=== PATIENT | male | born 1945 | race Caucasian/White ===

== ENCOUNTER 2017-10-04 15:13 | Emergency (ER) | payer MEDICARE ==
[~2017-10-04] VITALS: Ht 185.4 cm; Wt 106.8 kg
[2017-10-04 15:22] VITALS: TEMP 97.9
[2017-10-04] MEDS ORDERED: ASPIRIN 81M81 MG/TA2 PO (15:42)
[2017-10-04 15:56] VITALS: BP 158/65
[2017-10-04] MEDS ORDERED: ZITHROMAX Z PA250 MG PO (16:17)
[2017-10-04 16:24] VITALS: PULSE 74
== END 2017-10-04 16:26 | disposition home or self-care (01) ==
LOC: COL.ER 15:13
DX: H66.91 Otitis media, unspecified, right ear (principal); I10 Essential (primary) hypertension; J44.9 Chronic obstructive pulmonary disease, unspecified; Z79.82 Long term (current) use of aspirin

== ENCOUNTER 2021-02-08 12:34 | Observation (INO) | payer MEDICARE, OTHER ==
[~2021-02-08] VITALS: Ht 185.4 cm; Wt 104.1 kg
[~2021-02-08 12:34] MED LIST: ASPIRIN 81M81 MG/TA2 PO; ZITHROMAX Z PA250 MG PO
[2021-02-08 13:07] LABS: BASO # 0.1 (0.0-0.2); BASO % 1.1 % (0.0-2.0); EOS # 0.2 (0.0-0.7); EOS % 3.4 % (0-4.0); GRAN # 1.8 (1.4-6.5); GRAN % 40.3 % (42.2-75.2); HEMATOCRIT 40.4 % (42.0-52.0); HEMOGLOBIN 13.6 g/dl (13.5-18.0); LYMPH # 1.6 (1.2-3.4); LYMPH % 37.3 % (20.0-51.0); MEAN CELL VOLUME 92 fl (80.0-100.0); MEAN CORPUSCULAR HEMOGLOBIN 31 pg (27.0-31.0); MEAN CORPUSCULAR HGB CONC 34 g/dl (33.0-37.0); MEAN PLATELET VOLUME 10.9 fl (7.4-10.4); MONO # 0.8 (0.1-0.6); MONO % 17.7 % (1.7-9.3); PLATELET COUNT 166 K/mm3 (130-400); RED BLOOD COUNT 4.41 M/mm3 (4.20-5.60); REDCELL DISTRIBUTION WIDTH-CV 13.2 % (11.5-14.5)
[2021-02-08 13:17] LABS: ALANINE AMINOTRANSFERASE 18 U/L (4-49); ALBUMIN 4.5 gm/dL (3.5-5.0); ALKALINE PHOSPHATASE 88 U/L (50-136); ANION GAP 9 mmol/L (7-16); AST,SGOT 27 U/L (15-37); BILIRUBIN,TOTAL 0.5 mg/dL (0.0-1.0); BLOOD UREA NITROGEN 17 mg/dL (9-20); CALCIUM 9.1 mg/dL (8.4-10.2); CARBON DIOXIDE 28 mmol/L (22-30); CHLORIDE 96 mmol/L (98-107); CREATININE, serum 0.79 (0.66-1.25); GLUCOSE 102 mg/dL (74-106); POTASSIUM 4.5 mmol/L (3.4-5.0); SODIUM 133 mmol/L (137-145)
[2021-02-08 13:28] LABS: TROPONIN-I < 0.012 ng/mL (0.000-0.035)
[2021-02-08] MEDS ORDERED: PROAIR HFA0.09 MG/AC IH (15:24)
[2021-02-08] MEDS ORDERED: 00186-0372-20 IH (15:25)
[2021-02-08] MEDS ORDERED: NASALCROM5.2 MG/ACT NS (15:27)
[2021-02-08] MEDS ORDERED: PRINIVIL10 MG PO (15:28)
[2021-02-08] MEDS ORDERED: ENBREL50 MG/1 ML SQ (15:28)
[2021-02-08] MEDS ORDERED: PRIL40 PO (15:29)
[2021-02-08] MEDS ORDERED: CLARITIN 1010 MG/TAB PO (15:29)
[2021-02-08] MEDS ORDERED: CIALIS20 MG PO (15:30)
[2021-02-08] MEDS ORDERED: SPIRIVA RE2.5 MCG/Ac IH (15:31)
[2021-02-08] MEDS ORDERED: PLAQUENIL 200M200 MG PO (15:31)
[2021-02-08] MEDS ORDERED: SINGULAIR 110 MG/TAB PO (15:32)
[2021-02-08 17:32] VITALS: BP 167/70; PULSE 60; TEMP 97.9
--- NOTE | 2021-02-08 17:35 | NUR ---
Patient up from ER. Alert and oriented x 3. Assessment complete. Patient oriented to room. Dr. Nieves in to see patient. Denies pain or further needs at this time.
--- NOTE | 2021-02-08 18:24 | NUR ---
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
[2021-02-08 19:02] VITALS: BP 156/77; PULSE 63; TEMP 98.3
--- NOTE | 2021-02-08 22:37 | NUR ---
PT SETTING UP IN BED, DENIES SOA, CHEST PAIN OR NAUSEA. ASSESSMENT AND VITALS OBTAINED. PLAN OF CARE DISCUSSED W PT. TRENDING LABS OVERNIGHT. PT V/U. NEEDS MET.
[2021-02-09 00:22] VITALS: BP 158/77; PULSE 66; TEMP 97.4
[2021-02-09 04:00] VITALS: BP 170/68; PULSE 62; TEMP 97.4
--- NOTE | 2021-02-09 04:55 | NUR ---
rested through out night without incident. Denies chest pain or discomfort. Trending troponins. Needs met.
[2021-02-09 05:59] LABS: HEMATOCRIT 39.5 % (42.0-52.0); HEMOGLOBIN 13.2 g/dl (13.5-18.0); MEAN CELL VOLUME 92 fl (80.0-100.0); MEAN CORPUSCULAR HEMOGLOBIN 31 pg (27.0-31.0); MEAN CORPUSCULAR HGB CONC 33 g/dl (33.0-37.0); MEAN PLATELET VOLUME 10.8 fl (7.4-10.4); PLATELET COUNT 151 K/mm3 (130-400); RED BLOOD COUNT 4.29 M/mm3 (4.20-5.60); REDCELL DISTRIBUTION WIDTH-CV 13.4 % (11.5-14.5)
[2021-02-09 06:01] LABS: ANION GAP 10 mmol/L (7-16); BLOOD UREA NITROGEN 15 mg/dL (9-20); CALCIUM 8.9 mg/dL (8.4-10.2); CARBON DIOXIDE 26 mmol/L (22-30); CHLORIDE 97 mmol/L (98-107); CHOLESTEROL 219 mg/dL (120-200); CHOLESTEROL RISK RATIO 3.8; CREATININE, serum 0.73 (0.66-1.25); GLUCOSE 110 mg/dL (74-106); HDL CHOLESTEROL 57 mg/dL; LDL CHOLESTEROL 140 mg/dL; POTASSIUM 4.1 mmol/L (3.4-5.0); SODIUM 132 mmol/L (137-145); TRIGLYCERIDE 111 mg/dL
[2021-02-09 06:12] LABS: TROPONIN-I < 0.012 ng/mL (0.000-0.035)
--- NOTE | 2021-02-09 07:44 | NUR ---
Assessment completed, alert/oriented, vital signs stable, denies any chest pain or discomfort overnight, serial Troponins have been negative, tele has been NSR/ rate 50's at times but denies any symptoms of bradycardia, distal pulses are palpable, lungs CTA/ denies any SOA or resp.difficulty, patient is tolerting PO intake / denies any nausea or vomitting, he is now sitting at edge of bed eating breakfast, denies other needs and hoping for discharge home today, a.m meds given and will continue to monitor, call light in reach
[2021-02-09 08:24] VITALS: BP 147/60; PULSE 65; TEMP 98.1
[2021-02-09] MEDS ORDERED: LIPITOR20 MG PO (10:19)
[2021-02-09] MEDS ORDERED: IMDUR 30MG30 MG/TAB PO (10:22)
[2021-02-09 11:32] VITALS: BP 168/78; PULSE 60; TEMP 97.6
--- NOTE | 2021-02-09 12:33 | NUR ---
Discharge orders discussed with the patient, instructed to follow up with PCP in 1 week, we fax order to scheduling for outpatient stress test this coming week/ I explained the hospital would call him early this next week to schedule a time, IV and tele removed, discussed medicaitons and med changes/ scripts sent to [facility] pharmacy for him, leaving with his , i escorted them out the door
--- NOTE | 2021-02-09 14:57 | NUR ---
Plan to return home IDL. Patient reportsthat his PCP is Dorothy Baldwin at [facility]. [facility] [place]. Patient reports that he has transportation. Patient denies any DME use or need. Patient declines any services at home. POA is reported as Berta Baez at [phone]. She would have a copy of the PPW if needed. Educated on services available to him. NF.
== END 2021-02-09 12:39 | disposition home or self-care (01) ==
LOC: COL.ER 12:34 → MEDICAL 16:21
PROVIDERS: Emergency Medicine; Physician Assistant; ADMIT Student in an Organized Health Care Education/Training Program
DX: R07.89 Other chest pain (principal); I44.7 Left bundle-branch block, unspecified; M25.551 Pain in right hip; G62.9 Polyneuropathy, unspecified; I25.10 Atherosclerotic heart disease of native coronary artery without angina pectoris; K21.9 Gastro-esophageal reflux disease without esophagitis; I10 Essential (primary) hypertension; J44.9 Chronic obstructive pulmonary disease, unspecified; M06.9 Rheumatoid arthritis, unspecified; E78.5 Hyperlipidemia, unspecified; Z88.2 Allergy status to sulfonamides; Z88.1 Allergy status to other antibiotic agents; Z72.89 Other problems related to lifestyle; Z79.899 Other long term (current) drug therapy; Z79.82 Long term (current) use of aspirin; Z88.8 Allergy status to other drugs, medicaments and biological substances; Z87.891 Personal history of nicotine dependence; Z96.641 Presence of right artificial hip joint
CPT/HCPCS: G0378; J1650

== ENCOUNTER → 2022-04-04 | Outpatient (CLI) | payer OTHER ==
[~2022-04-04] MED LIST changes: +00186-0372-20 IH; +CIALIS20 MG PO; +CLARITIN 1010 MG/TAB PO; +ENBREL50 MG/1 ML SQ; +IMDUR 30MG30 MG/TAB PO; +LIPITOR20 MG PO; +NASALCROM5.2 MG/ACT NS; +PLAQUENIL 200M200 MG PO; +PRIL40 PO; +PRINIVIL10 MG PO; +PROAIR HFA0.09 MG/AC IH; +SINGULAIR 110 MG/TAB PO; +SPIRIVA RE2.5 MCG/Ac IH
== END ==
LOC: COL.RAD 11:53
DX: M25.552 Pain in left hip (principal); Z96.642 Presence of left artificial hip joint
CPT/HCPCS: J3301; Q9967

== ENCOUNTER 2023-03-14 07:29 | Inpatient (IN) | payer OTHER, MEDICARE ==
[~2023-03-14] VITALS: Ht 182.9 cm; Wt 114.0 kg
[2023-03-14] VITALS (690 sets, daily range): BP systolic 70–93; BP diastolic 43–64; PULSE 66–98; TEMP 96.9–101.4; O2SAT 52–100
[2023-03-14 07:58] LABS: HEMATOCRIT 40.4 % (42.0-52.0); HEMOGLOBIN 13.4 g/dl (13.5-18.0); MEAN CELL VOLUME 93 fl (80.0-100.0); MEAN CORPUSCULAR HEMOGLOBIN 31 pg (27-31); MEAN CORPUSCULAR HGB CONC 33 g/dl (33.0-37.0); MEAN PLATELET VOLUME 12.9 fl (7.4-10.4); RED BLOOD COUNT 4.34 M/mm3 (4.20-5.60); REDCELL DISTRIBUTION WIDTH-CV 13.8 % (11.5-14.5)
[2023-03-14 08:03] LABS: PLATELET COUNT 47 K/mm3 (130-400)
[2023-03-14 08:07] LABS: ALBUMIN 2.8 gm/dL (3.4-4.8); BILIRUBIN,TOTAL 0.7 mg/dL (0.2-1.2); CALCIUM 8.6 mg/dL (8.4-10.2); CREATININE, serum 2.76 mg/dL (0.72-1.25); POTASSIUM 3.5 mmol/L (3.5-4.5); TOTAL PROTEIN 7.2 gm/dL (6.2-8.1)
[2023-03-14 09:16] LABS: BAND 36 % (0-10); LYMPHOCYTE 36 % (20.0-51.0); NEUTROPHILS 25 % (42.0-75.2); PLATELET ESTIMATE DECREASED (NORMAL)
[2023-03-14] MEDS ORDERED: PLAQUENIL 200M200 MG PO (09:43)
[2023-03-14] MEDS ORDERED: CYMBALTA 60MG60 MG PO (09:45)
[2023-03-14] MEDS ORDERED: BREZTRI AEROS10.7 GM IH (09:46)
[2023-03-14 10:39] LABS: ARTERIAL BLOOD GAS pH 7.41 (7.35-7.45)
[2023-03-14 10:40] LABS: ARTERIAL BLD GAS O2 SATURATION 96.2 % (92-100); ARTERIAL BLD GAS TCO2 CT 12.8; ARTERIAL BLOOD GAS BASE EXCESS -9.5 (-2-2); ARTERIAL BLOOD GAS HCO3 12.2 meq/L (22-26); ARTERIAL BLOOD GAS PCO2 19.6 mmHg (35-45); ARTERIAL BLOOD GAS PO2 87.5 mmHg (80-100)
--- NOTE | 2023-03-14 11:07 | NUR ---
Vancomycin Initial Dosing Pharmacy Note Ordering provider: Ceci Hayden MD Indication/duration: Sepsis, 7 days LABS: SCr 2.76, CrCl~27, GFR 23 Recommendation: Will start Vancomycin 1 gm IV q24h. Pharmacy will continue to closely monitor and adjust according to patient's renal function. Maintenance dose: 1 gram every 24 hours Trough goal: 15-20 ug/mL
[2023-03-14 11:30] LABS: TSH w REFLEX 1.723 uIU/mL (0.350-4.940)
[2023-03-14 11:31] LABS: TROPONIN-I 0.524 ng/mL (0.00-0.033)
--- NOTE | 2023-03-14 11:42 | NUR ---
DR. ARIZA BEDSIDE FOR CENTRAL LINE PLACEMENT. THIS NURSE ASSISTING.
[2023-03-14 13:02] LABS: GRANULAR CAST >12 /lpf (0); MUCOUS Present (NOT PRESENT); SQUAMOUS EPITHELIAL 0-2 /hpf (0-10); URINE BACTERIA None Seen /hpf (NONE SEEN); URINE RBC 20-50 /hpf (0-2)
[2023-03-14 13:05] LABS: COLLECTION METHOD RANDOM VOIDED; URINE APPEARANCE Cloudy (CLEAR/HAZY); URINE COLOR Amber (YELLOW)
[2023-03-14 13:06] LABS: URINE BLOOD 1+ (NEGATIVE); URINE GLUCOSE Negative (NEGATIVE); URINE KETONE Negative (NEGATIVE); URINE NITRATE Negative (NEGATIVE); URINE PROTEIN(semi-quant) 2+ (NEGATIVE); URINE UROBILINOGEN 0.2 E.U/dL (0.2-1.0)
--- NOTE | 2023-03-14 15:39 | NUR ---
PER FAMILY PMH: BASAL CELL SKIN CA W/ REMOVAL, WITHIN 60-90 DAYS. 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
--- NOTE | 2023-03-14 17:06 | NUR ---
WOUNDS BY BARN CAT BITE ON RIGHT OUT SIDE OF LOWER LEG.
--- NOTE | 2023-03-14 18:13 | NUR ---
PT FAMILY STATES THAT HE IS SAYING HE HAS BACK PAIN.
--- NOTE | 2023-03-14 19:12 | NUR ---
CALLED DOROTHY MONSON IN REGARDS TO PATIENT BLOOD PRESSURE BEING LOW. ORDERS RECEIVED.
--- NOTE | 2023-03-14 19:45 | NUR ---
RECEIVED BEDSIDE SHIFT REPORT FROM ABBI BLANCO. PATIENT HAS INTERNITTENT HYPOTENSION AND IS COMPLAINING OF CHRONIC BACK PAIN. PATIENT HAS NOT VOIDED TODAY BUT WILL REPEAT BLADDER SCAN. HAS ZOSYN, LR AND AMIO RUNNING IN RIGHT INTERNAL JUGULAR TRIPLE LUMEN CATHETER. STILL HAS 2 PERIPHERAL SITES. PATIENT IS LYING IN BED, SUPINE WITH EYES OPEN. FAMILY IS PRESENT AT BEDSIDE. HAS HAD DIARRHEA TODAY. OXYGEN AT 2L NASAL CANNULA. CALL BUTTON WITHIN REACH. OTHER VITAL SIGNS STABLE.
--- NOTE | 2023-03-14 21:07 | NUR ---
CALLED DOROTHY MONSON TO GIVE UPDATE. BLOOD PRESSURE IS STABLE.
[2023-03-15] VITALS (1118 sets, daily range): BP systolic 110–146; BP diastolic 61–80; PULSE 57–81; TEMP 95.9–98; O2SAT 63–100
[2023-03-15 01:25] LABS: COLLECTION METHOD CATHETER
[2023-03-15 01:34] LABS: AMORPHOUS CRYSTAL Present (NOT PRESENT); MUCOUS Present (NOT PRESENT); SQUAMOUS EPITHELIAL 0-2 /hpf (0-10); URINE APPEARANCE Cloudy (CLEAR/HAZY); URINE BACTERIA None Seen /hpf (NONE SEEN); URINE BLOOD Negative (NEGATIVE); URINE COLOR Amber (YELLOW); URINE GLUCOSE Negative (NEGATIVE); URINE KETONE 1+ (NEGATIVE); URINE NITRATE Negative (NEGATIVE); URINE PROTEIN(semi-quant) 2+ (NEGATIVE)
[2023-03-15 06:10] LABS: CALCIUM 7.7 mg/dL (8.4-10.2); CREATININE, serum 2.59 mg/dL (0.72-1.25); POTASSIUM 3.4 mmol/L (3.5-4.5)
[2023-03-15 09:02] LABS: MEAN CELL VOLUME 90 fl (80.0-100.0); MEAN CORPUSCULAR HGB CONC 35 g/dl (33.0-37.0); RED BLOOD COUNT 3.62 M/mm3 (4.20-5.60); REDCELL DISTRIBUTION WIDTH-CV 14.4 % (11.5-14.5)
[2023-03-15 09:04] LABS: HEMATOCRIT 32.6 % (42.0-52.0); HEMOGLOBIN 11.3 g/dl (13.5-18.0); MEAN CORPUSCULAR HEMOGLOBIN 31 pg (27-31); PLATELET COUNT 28 K/mm3 (130-400)
[2023-03-15 09:24] LABS: BAND 7 % (0-10); LYMPHOCYTE 31 % (20.0-51.0); NEUTROPHILS 22 % (42.0-75.2); NUCLEATED RED BLOOD CELL 1 (0-6)
[2023-03-15 09:25] LABS: BURR CELLS 2+; PLATELET ESTIMATE DECREASED (NORMAL)
[2023-03-15 10:20] LABS: INR 1.5 (0.8-3.0); PROTHROMBIN TIME 17.4 SECONDS (9.7-12.8)
--- NOTE | 2023-03-15 10:26 | NUR ---
AMIO TURNED OFF
--- NOTE | 2023-03-15 11:47 | NUR ---
Shop Service Technician rounds: Patient had visitors who appeared to be family. No Shop Service Technician visit offered or completed.
--- NOTE | 2023-03-15 15:24 | NUR ---
Seat Cover Maker met with patient, Partner of 22 years, Berta Baez ([phone]) and adult daughter Pretty Swift ([phone]). Patient is alert and oriented, and has a slight slurred speech; he gives verbal consent to talk to this Seat Cover Maker with visitors present. Patient states he [place] partner [place] [facility] There are two steps to both entryways, and one entryway has railing. Patient has access to a cane, crutches, and a walker as needed, from a previous surgery. He reports independence in his ADLs, and his partner assists with IADLs. Patient has a toilet riser and his family is working to get him an ADA toilet and grab bars installed so his home is more accessible to him. Patient reports he wants to do rehab and return to part-time work with [email or web address], "I like work." Patient is open to recommended rehab options, and saw PT today. Patient sees Danna Colin for Primary Care at the [facility]; he is on the Red team. He does not know if he has a case briefer through the Red Team. He also utilizes local [facility] to see Dr. Calloway for Dermatology. Patient [facility] for [facility] medications, but will utilize [facility] for any urgent medications. He does have a DPOA-HC completed at home that designates his adult son Felix Swift ([phone]). His partner does not wish to make his medical decisions on his behalf. Daughter Pretty plans to bring the DPOA-HC paperwork to the hospital to be filed into patient medical record. Patient and family report no further needs at this time. *Discharge plan pending PT/OT and medical evaluations*
--- NOTE | 2023-03-15 19:39 | NUR ---
RECEIVED REPORT FROM ANDRE SCHULTZ RN. ORDERS, LABS, AND MEDICATIONS REVIEWED AND ACKNOWLEDGED.
--- NOTE | 2023-03-15 21:11 | NUR ---
ASSESSMENT COMPLETED. MEDICATIONS ADMINISTERED PER EMAR. PATIENT'S OXYGEN SAT 98% ON 1L VIA NC. OXYGEN REMOVED AT THIS TIME TO SEE IF PATIENT CAN MAINTAIN WITHOUT. PATIENT REPORTS RIGHT LEG IS TENDER, BUT NO OTHER CONCERNS AT THIS TIME. PATIENT'S OXYGEN LEVEL 96% UPON THIS NURSE LEAVING THE ROOM. WILL CONTINUE TO MONITOR PATIENT'S O2 SATURATION AND RIGHT LOWER LEG. PATIENT SITTING IN RECLINER, CALL LIGHT WITHIN REACH.
[2023-03-15 22:58] LABS: CALCIUM 7.8 mg/dL (8.4-10.2); CREATININE, serum 1.42 mg/dL (0.72-1.25); MAGNESIUM 1.3 mg/dL (1.6-2.6); POTASSIUM 3.1 mmol/L (3.5-4.5)
[2023-03-16] VITALS (751 sets, daily range): BP systolic 108–117; BP diastolic 42–69; PULSE 49–82; TEMP 97.5–98.8; O2SAT 56–100
[2023-03-16 05:13] LABS: HEMOGLOBIN 10.9 g/dl (13.5-18.0); MEAN CELL VOLUME 90 fl (80.0-100.0); MEAN CORPUSCULAR HEMOGLOBIN 31 pg (27-31); MEAN CORPUSCULAR HGB CONC 34 g/dl (33.0-37.0); MEAN PLATELET VOLUME 14.7 fl (7.4-10.4); RED BLOOD COUNT 3.52 M/mm3 (4.20-5.60); REDCELL DISTRIBUTION WIDTH-CV 14.3 % (11.5-14.5)
[2023-03-16 05:15] LABS: HEMATOCRIT 31.8 % (42.0-52.0)
[2023-03-16 05:18] LABS: PLATELET COUNT 38 K/mm3 (130-400)
[2023-03-16 05:23] LABS: CREATININE, serum 1.26 mg/dL (0.72-1.25); POTASSIUM 3.4 mmol/L (3.5-4.5)
[2023-03-16 05:52] LABS: BAND 26 % (0-10); EOSINOPHIL 1 % (0-4); LYMPHOCYTE 30 % (20.0-51.0); NEUTROPHILS 33 % (42.0-75.2)
[2023-03-16 05:53] LABS: PLATELET ESTIMATE DECREASED (NORMAL)
[2023-03-16 08:30] LABS: PATHOLOGY DIFF REVIEW OK
--- NOTE | 2023-03-16 08:54 | NUR ---
BEDSIDE REPORT RECEIVED FROM ABBI ORTEGA. PT SITTING IN BEDSIDE RECLINER. VSS, PT IN AFIB W/ CONTROLLED RATE. FLUIDS AND POTASSIUM INFUSING ORDERED TO RIJ CENTRAL LINE. PT DENIES NEEDS AT THIS TIME, CALL LIGHT IN REACH.
--- NOTE | 2023-03-16 11:54 | NUR ---
Patients willis Washington presents to unit with patients DPOA-HC and Living Will listing both he and the patients daughter Roma as his agents. Copy stickered and placed on the patients chart. Patient verbalizes that he is feeling better today. States that he is normally active and independent and works service parts coordinator for [employer]. States that his employer knows he is here. Patient verbalizes anxiousness about getting out of the hospital.
--- NOTE | 2023-03-16 15:43 | NUR ---
Telehealth visit conducted with Dr. Neel Salcedo, Infectious Disease. Patient consented to visit. Patient's nurse present. Telecommunication initiated without any difficulties during exam. All questions were answered by Dr. Salcedo
--- NOTE | 2023-03-16 16:20 | NUR ---
PT TAKEN TO ROOM 323 VIA AT 1510. REPORT GIVEN TO ABBI HOLLAND. PT IN STABLE CONDITION UPON TRANFER. PT BELONGINGS TAKEN TO NEW ROOM WELL.
[2023-03-17 04:12] VITALS: BP 129/53; PULSE 51; TEMP 98.4
[2023-03-17 06:40] LABS: HEMOGLOBIN 10.3 g/dl (13.5-18.0); MEAN CELL VOLUME 90 fl (80.0-100.0); MEAN CORPUSCULAR HEMOGLOBIN 31 pg (27-31); MEAN CORPUSCULAR HGB CONC 35 g/dl (33.0-37.0); MEAN PLATELET VOLUME 14.4 fl (7.4-10.4); RED BLOOD COUNT 3.29 M/mm3 (4.20-5.60); REDCELL DISTRIBUTION WIDTH-CV 14.6 % (11.5-14.5)
[2023-03-17 06:54] LABS: CALCIUM 8.1 mg/dL (8.4-10.2); CREATININE, serum 0.89 mg/dL (0.72-1.25); POTASSIUM 3.6 mmol/L (3.5-4.5)
[2023-03-17 07:13] VITALS: BP 144/51; PULSE 71; TEMP 97.3
[2023-03-17 07:33] LABS: HEMATOCRIT 29.6 % (42.0-52.0)
[2023-03-17 07:34] LABS: PLATELET COUNT 47 K/mm3 (130-400)
--- NOTE | 2023-03-17 08:30 | NUR ---
pt sitting in chair w breakfast. meds given and assessment complete. vss and tele in place. baum to dd w orange urine output. potassium replaced. reverse precautions in place. RIJ flushes well w good blood return. no needs at this time. call light in reach.
[2023-03-17 08:37] LABS: BAND 4 % (0-10); EOSINOPHIL 1 % (0-4); LYMPHOCYTE 18 % (20.0-51.0); NEUTROPHILS 72 % (42.0-75.2)
[2023-03-17 08:38] LABS: PLATELET ESTIMATE DECREASED (NORMAL)
--- NOTE | 2023-03-17 11:06 | NUR ---
pt daughter, Roma, expressed concerns about discharge and wanting to be involved with conversation before pt is released.
[2023-03-17 11:26] VITALS: BP 139/51; PULSE 56; TEMP 98.5
[2023-03-17 15:11] VITALS: BP 139/52; PULSE 57; TEMP 98.8
--- NOTE | 2023-03-17 15:20 | NUR ---
Telehealth visit conducted with Dr. Neel Salcedo, Infectious Disease. Patient consented to visit. Patient's daughter present during visit. Telecommunication initiated without any difficulties during exam. All questions were answered by Dr. Salcedo
--- NOTE | 2023-03-17 15:39 | NUR ---
Stamp Machine Servicer met with Patient and daughter at bedside to discuss discharge planning. Patient reports that he wants to discharge with outpatient PT through Medicare rather than VA insurance. SW provided Patient with a list of outpatient PT roviders in [place], [place].
[2023-03-17 19:05] VITALS: BP 151/52; PULSE 51; TEMP 97.7
--- NOTE | 2023-03-17 23:29 | NUR ---
GURVINDER, NURSE'S AIDE NOTIFIED ME THAT THE PT. WAS C/O PAIN, AND ASKED IF HE COULD HAVE A DOSE OF TYLENOL, PT. TAKES PILLS ONE AT A TIME, AND DID COUGH AFTER SWALLOWING THE FIRST ONE, WILL CONTINUE TO MONITOR FOR POSSIBLE ASPIRATIONS SIGNS, AND INFORMED PT. THAT I WOULD CHECK ON HIM IN ABOUT AN HOUR TO SEE IF THE TYLENOL HAD HELPED WITH HIS PAIN.
[2023-03-18] VITALS (9 sets, daily range): BP systolic 133–177; BP diastolic 46–70; PULSE 45–128; TEMP 96–99.2
[2023-03-18 06:44] LABS: HEMOGLOBIN 10.4 g/dl (13.5-18.0); MEAN CELL VOLUME 92 fl (80.0-100.0); MEAN CORPUSCULAR HEMOGLOBIN 31 pg (27-31); MEAN CORPUSCULAR HGB CONC 34 g/dl (33.0-37.0); PLATELET COUNT 64 K/mm3 (130-400); RED BLOOD COUNT 3.38 M/mm3 (4.20-5.60); REDCELL DISTRIBUTION WIDTH-CV 15.1 % (11.5-14.5)
[2023-03-18 07:00] LABS: CREATININE, serum 0.8 mg/dL (0.72-1.25); MAGNESIUM 1.5 mg/dL (1.6-2.6); POTASSIUM 3.7 mmol/L (3.5-4.5)
[2023-03-18 07:11] LABS: BAND 10 % (0-10); BASOPHIL 2 % (0-2); EOSINOPHIL 4 % (0-4); LYMPHOCYTE 21 % (20.0-51.0); NEUTROPHILS 55 % (42.0-75.2)
[2023-03-18 07:12] LABS: PLATELET ESTIMATE DECREASED (NORMAL)
--- NOTE | 2023-03-18 07:38 | NUR ---
pt awake resting in bed. dr lopez in this morning for dressing change. antibiotic aquacell applied w aleja bandage. vss and tele in place. potassium replaced this morning. baum to dd w orange urine output. pt denies pn. RIJ flushes well w good blood return. +2 edema to ble. pt denies needs. call light in reach.
--- NOTE | 2023-03-18 09:11 | NUR ---
baum discontinued per dr orders without difficulty.
--- NOTE | 2023-03-18 12:15 | NUR ---
reported pts elevated bp to joanna DE LA CRUZ.
--- NOTE | 2023-03-18 19:07 | NUR ---
PLACED PATIENT ON 2L VIA NASAL CANNULA. SPO2 WAS BELOW 90% BEFORE SVN.
--- NOTE | 2023-03-18 19:57 | NUR ---
Patient A/O, head to toe assessment done, see shift assessment, denies pain at this time, with RIJ CDI, dressing to right leg CDI elevated with pillow, on 2LPM via nasal prong, denies further needs, call light and personal items within reach, will continue to monitor.
[2023-03-19 03:45] VITALS: BP 141/48; PULSE 44; TEMP 97.5
--- NOTE | 2023-03-19 04:26 | NUR ---
Repositioned patient to the right side.
--- NOTE | 2023-03-19 04:40 | NUR ---
Called Lynn and made her aware that patient has been diaphoretic, took blood sugar and it was normal, bradycardic in the 40's, took rectal temperature and it was normal as well, fan provided, will continue to monitor.
[2023-03-19 04:56] VITALS: TEMP 98.2
[2023-03-19 07:07] LABS: BASO # 0.1 K/mm3 (0.0-0.2); BASO % 0.8 % (0.0-2.0); EOS # 0.1 K/mm3 (0.0-0.7); EOS % 1.7 % (0.0-4.0); GRAN # 4.4 K/mm3 (1.4-6.5); GRAN % 74.7 % (42.2-75.2); HEMOGLOBIN 10.3 g/dl (13.5-18.0); LYMPH # 0.8 K/mm3 (1.2-3.4); LYMPH % 13.7 % (20.0-51.0); MEAN CELL VOLUME 93 fl (80.0-100.0); MEAN CORPUSCULAR HEMOGLOBIN 31 pg (27-31); MEAN CORPUSCULAR HGB CONC 33 g/dl (33.0-37.0); MEAN PLATELET VOLUME 14.1 fl (7.4-10.4); MONO # 0.5 K/mm3 (0.1-0.6); MONO % 8.6 % (1.7-9.3); PLATELET COUNT 73 K/mm3 (130-400); RED BLOOD COUNT 3.38 M/mm3 (4.20-5.60)
[2023-03-19 07:10] LABS: HEMATOCRIT 31.3 % (42.0-52.0)
[2023-03-19 07:19] LABS: CALCIUM 7.8 mg/dL (8.4-10.2); CREATININE, serum 0.75 mg/dL (0.72-1.25); POTASSIUM 3.6 mmol/L (3.5-4.5)
[2023-03-19 07:45] VITALS: BP 151/60; PULSE 45; TEMP 97.5
--- NOTE | 2023-03-19 08:29 | NUR ---
PT UNABLE TO AMBULATET AT THIS TIME DUE TO NATURE OF ILLNESS/INJURY. PT WAS ASSESSED IN BED WITH O2 OFF. PT SPO2 REMAINED IN THE LOW 90'S FOR OVER TEN MINUTES WITHOUT O2 ON. NO HOME O2 REQUIRED AT THIS TIME
--- NOTE | 2023-03-19 08:34 | NUR ---
Slotter Operator Helper met with Patient and daughter to discuss discharge planning. Patient reports that reccomends home health and is accepting to this option. SW provided Patient with Medicare.gov list of home health providers servicing [place], [place]. Patient agreed to review the list and make a selection this AM.
--- NOTE | 2023-03-19 08:55 | NUR ---
assisted pt to BSC, pt had small loose bowel movement. pt denies shortness of breath after returning to bed. pt requesting to sit on side of bed to eat breakfast. meds given and assessment complete. RIJ in place. vss and tele in place, pt remains ricky. pt on room air. LLE wound left open to air, abx oitment applied. potassium replaced per protocol. fall precautions in place. pt denies needs at this time. call light in reach.
[2023-03-19 11:22] VITALS: BP 156/75; PULSE 42; PULSE 45; TEMP 97.7
--- NOTE | 2023-03-19 11:36 | NUR ---
Enterostomal Nurse met with PAtient and daughter to discuss Home Health options from provided Medicare.gov list of providing agencies. [facility] their [facility] preference. SW faxed referral documents to [facility].
[2023-03-19] MEDS ORDERED: TOPROL XL 25MG25 MG PO (11:39)
--- NOTE | 2023-03-19 12:37 | NUR ---
[facility] was contacted by [facility] who reports to decline Patient due to their services focusing on palliative care. SW faxed Patient's 2nd preference[facility].
[2023-03-19] MEDS ORDERED: AMOXICILLIN 8751 TAB PO (13:02)
--- NOTE | 2023-03-19 15:00 | NUR ---
Heating Technician collaborated with ABBI Cullen to coordinate with [facility] to ensure agency can meet the needs of Patient. Yenny at [facility] accepts Patient with an intake appointment scheduled for 01-20-23 at 1100. Patient and daughter was notified.
--- NOTE | 2023-03-19 15:05 | NUR ---
Telehealth visit conducted with Dr. Neel Salcedo, Infectious Disease. Patient consented to visit. Patient's daughter present. Telecommunication initiated without any difficulties during exam. All questions were answered by Dr. Salcedo
--- NOTE | 2023-03-19 16:24 | NUR ---
new dressing applied to LLE. RIJ taken out. discharge instructions given to pt and family. all questions answered. pt taken out by wheelchair to personal vehicle.
== END 2023-03-19 16:30 | disposition home health service (06) | DRG 871 ==
LOC: COL.ER → ICU 09:48 → SURG 10:22
PROVIDERS: Internal Medicine Pulmonary Disease; Personal Emergency Response Attendant; ADMIT Internal Medicine
PROC: 02HV33Z Insertion of Infusion Device into Superior Vena Cava, Percutaneous Approach (ICD-10-PCS; principal; 2023-03-14)
DX: A41.59 Other Gram-negative sepsis (principal); R65.21 Severe sepsis with septic shock; N17.9 Acute kidney failure, unspecified; E87.20 Acidosis, unspecified; L02.416 Cutaneous abscess of left lower limb; L97.829 Non-pressure chronic ulcer of other part of left lower leg with unspecified severity; D61.818 Other pancytopenia; Z66 Do not resuscitate; D84.9 Immunodeficiency, unspecified; A28.0 Pasteurellosis; E86.1 Hypovolemia; E87.6 Hypokalemia; E83.42 Hypomagnesemia; M06.9 Rheumatoid arthritis, unspecified; E86.0 Dehydration; D69.6 Thrombocytopenia, unspecified; J44.9 Chronic obstructive pulmonary disease, unspecified; I48.91 Unspecified atrial fibrillation; R19.7 Diarrhea, unspecified; B96.89 Other specified bacterial agents as the cause of diseases classified elsewhere; I95.9 Hypotension, unspecified; F10.10 Alcohol abuse, uncomplicated; R09.02 Hypoxemia; I10 Essential (primary) hypertension; R00.1 Bradycardia, unspecified; T46.0X5A Adverse effect of cardiac-stimulant glycosides and drugs of similar action, initial encounter; I44.7 Left bundle-branch block, unspecified; I25.10 Atherosclerotic heart disease of native coronary artery without angina pectoris; E66.9 Obesity, unspecified; E78.5 Hyperlipidemia, unspecified; R23.0 Cyanosis; D64.9 Anemia, unspecified; G62.9 Polyneuropathy, unspecified; Z20.822 Contact with and (suspected) exposure to COVID-19; Z23 Encounter for immunization; W55.01XA Bitten by cat, initial encounter; Y93.89 Activity, other specified; Y92.89 Other specified places as the place of occurrence of the external cause; Z87.891 Personal history of nicotine dependence; Z88.1 Allergy status to other antibiotic agents; Z88.2 Allergy status to sulfonamides; Z88.8 Allergy status to other drugs, medicaments and biological substances; Z79.82 Long term (current) use of aspirin; Z68.31 Body mass index [BMI] 31.0-31.9, adult
CPT/HCPCS: A4314; A6248; C1751; C9113; J0282; J1160; J1956; J2543; J3370; J3475; J3480; J7030; J7040; J7050; J7060; J7120

== ENCOUNTER → 2023-03-23 | Outpatient (CLI) | payer MEDICARE ==
[~2023-03-23] MED LIST changes: +AMOXICILLIN 8751 TAB PO; +BREZTRI AEROS10.7 GM IH; +CYMBALTA 60MG60 MG PO; +TOPROL XL 25MG25 MG PO
== END ==
LOC: COL.RAD 12:53 → COL.VAS 12:53
DX: I82.462 Acute embolism and thrombosis of left calf muscular vein (principal); I82.4Y2 Acute embolism and thrombosis of unspecified deep veins of left proximal lower extremity; M79.604 Pain in right leg; M79.89 Other specified soft tissue disorders